=== PATIENT | female | born 1970 | race Caucasian/White ===

== ENCOUNTER → 2018-09-24 | Outpatient (CLI) | payer BC ==
[2014-02-17 10:40] VITALS: BP 95/63
[~2018-09-24] MED LIST: AZIT250T6 PO; GADOBUTROL 10 MMOL/10 ML VIAL IV ONE; LISI10TA2 PO; NAPR220T70 PO
--- NOTE | 2018-09-24 15:45 | KCIC ---
MRI Brain with and without contrast History: Abnormal CT, focus of density of the third ventricle on previous CT, syncopal episode Technique: Multiplanar, multi sequential pre and postcontrast MR imaging was performed of the brain. Comparison: February 02, 2018 CT Findings: There is no correlate on MRI with CT finding in the third ventricle. Ventricles are not dilated. There is no intra-axial mass effect, midline shift, extra-axial fluid collection. There is homogeneously enhancing extra-axial mass at the left frontal vertex abutting the falx about 1.3 cm transverse by 1.2 cm AP by 0.8 cm cc. There is no significant edema of the adjacent left frontal parenchyma. There a few small foci of nonenhancing T2 and FLAIR hyperintense signal of the supratentorial white matter bilaterally greatest most numerous of the left frontal lobe. There is preservation of the major arterial intracranial flow voids at the skull base. 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 There is mild diffuse thickening of the right mastoid air cells, very minimal thickening on the left. There is patchy mild to moderate ethmoid air cell mucosal thickening posteriorly. There is very mild maxillary sinus mucosal thickening. Cerebral volume is within normal limits for the patient's age. There is no significant hemosiderin deposition of the brain parenchyma. Impression: 1. There is extra-axial enhancing mass at the left frontal vertex abutting the falx, most likely a meningioma. 2. There is no MRI correlate for findings of the third ventricle as described for previous CT. 3. Very mild T2 and FLAIR hyperintense signal abnormality of the supratentorial parenchyma is nonspecific. White matter changes can be seen in patients with migraine headaches. Pattern is not particularly suggestive of an inflammatory demyelinating disease. Sequela of chronic microvascular ischemic disease would be a consideration if risk factors such as hypertension or diabetes. Electronically signed by: Andrew Sesay MD (09/24/2018 3:40 PM) [id number]
== END | disposition home or self-care (01) ==
LOC: KCIC MRI 14:42
PROVIDERS: ATTEND Internal Medicine
DX: R93.0 Abnormal findings on diagnostic imaging of skull and head, not elsewhere classified (principal)
CPT/HCPCS: 70553; A9585

== ENCOUNTER → 2018-10-24 | Outpatient (CLI) | payer BC ==
[2014-02-17 10:40] VITALS: BP 95/63
--- NOTE | 2018-10-24 17:13 | KCIC ---
MRI of the neck without and with contrast 10/24/2018 CLINICAL HISTORY: Lump on left side of neck. History of mass seen in muscle within the left neck on a CT scan. TECHNIQUE: Unenhanced T1-weighted sagittal and axial and coronal and fat saturated T2-weighted axial and coronal images of the neck were obtained. After the intravenous administration of 9 cc of Gadavist, enhanced fat saturated T1 weighted sagittal axial and coronal images of the neck were obtained. A MRI compatible marker was placed in the left neck in the area where the patient feels a palpable abnormality. FINDINGS: Comparison is made to an ultrasound of the neck dated 10/21/2015. The patient's outside CT scan is unavailable for comparison. Some of the images are degraded by patient motion. The mucosal pattern of the nasopharynx, oropharynx, hypopharynx and larynx are within normal limits. Mild to moderate mucosal thickening is seen throughout the paranasal sinuses. There are small to moderate-sized bilateral mastoid effusions, right greater than left. The parotid and submandibular glands are within normal limits. The thyroid gland is within normal limits. Slightly prominent likely reactive lymph nodes are seen scattered throughout the neck. These measure 1 to 2 cm in size. Small reactive lymph nodes are seen immediately posterior to the left sternocleidomastoid muscle within subcutaneous fat which appear to correspond to the patient's palpable abnormality. These measure 4 to 8 mm in size. Posteriorly, within the left paraspinal musculature in the suprahyoid neck, an oval-shaped high signal intensity lesion is seen which measures 2.2 cm in greatest diameter on the T2-weighted images. This demonstrates decreased signal intensity to muscle on the T1-weighted images. Faint enhancement is seen. 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 No additional soft tissue mass is seen. IMPRESSION: 1. Small reactive lymph nodes are seen within the left neck which appear to correspond to the patient's palpable abnormality. 2. 2.2 cm well-defined oval-shaped high signal intensity lesion is seen within the left paraspinal musculature on the T2-weighted images which is felt to most likely represent a benign lesion as outlined above. Electronically signed by: Luis Maldonado MD (10/24/2018 5:09 PM) [id number]
== END | disposition home or self-care (01) ==
LOC: KCIC MRI 15:17
PROVIDERS: ATTEND Internal Medicine
DX: R22.1 Localized swelling, mass and lump, neck (principal)
CPT/HCPCS: 70543; A9585

== ENCOUNTER → 2021-05-10 | Outpatient (CLI) | payer BC, OTHER ==
[2014-02-17 10:40] VITALS: BP 95/63
[~2021-05-10] MED LIST changes: -GADOBUTROL 10 MMOL/10 ML VIAL IV ONE; +LISI10TA16 PO; -LISI10TA2 PO
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
== END ==
LOC: KCIC MRI 12:53
PROVIDERS: ATTEND Physician Assistant
DX: M75.112 Incomplete rotator cuff tear or rupture of left shoulder, not specified as traumatic (principal); M19.012 Primary osteoarthritis, left shoulder; M25.812 Other specified joint disorders, left shoulder
CPT/HCPCS: 73221